=== PATIENT | male | born 1935 | race Caucasian/White ===

== ENCOUNTER → 2016-03-07 | Outpatient (REF) | payer MEDICARE, OTHER ==
[~2016-03-07] MED LIST: ACET30TAB PO; ALLO100T PO; AMIO20TA PO; ASPI325T28 PO; BAYE325T12 PO; CIPR500T89 PO; COLA100C PO; FISH120012 PO; FURO1TAB15 PO; FURO40TA2 PO; GLIP5TAB8 PO; LEVA500T PO; LISI-542 PO; LISI25TA PO; META28.35 PO; MICR10CA PO; MILKSUS PO; MULTCAP PO; NITR0.4D6 SL; PROT1TAB2 PO; SENN8.6C PO; SENO8.6T2 PO; SIMV20TA2 PO; TOPR50TA PO; TYLE325T5 PO; bumex PO; flexamin OR
== END ==
LOC: M SMT 17:06
PROVIDERS: ATTEND Nurse Practitioner Women's Health
DX: N20.0 Calculus of kidney (principal)
CPT/HCPCS: 81001; 87086; G0463